=== PATIENT | male | born 1970 | race Caucasian/White ===

== ENCOUNTER 2016-05-13 15:05 | Inpatient (IN) | payer OTHER ==
[~2016-05-13] VITALS: Ht 188 cm; Wt 183.6 kg
[~2016-05-13 15:05] MED LIST: AUGMENTIN875 MG PO; DOXYCYCLINE HY100 MG PO; ENDOCET 5-3251 EACH PO; EXFORGE 5/161 TABLET PO; EXFORGE 5/321 TABLET PO; LEVEMIR100 UNIT/2 SC; LOSARTAN POTAS100 MG PO; METFORMIN HCL1000 MG PO; MOTRIN600 MG PO
[2016-05-13 15:56] LABS: EOSINOPHIL (%) 2.2 % (0-5); EOSINOPHIL COUNT 0.2 K/uL (0-0.3); HEMATOCRIT 51.5 % (38.0-50.0); IMMATURE GRANULOCYTE (%) 1.2 % (0.0-0.7); IMMATURE GRANULOCYTE COUNT 0.1 K/uL; INSTRUMENT ABS NEUTROPHIL CT 4.6 K/uL; LYMPHOCYTE COUNT 1.7 K/uL (1.0-2.8); MCH 26.2 PG (29.0-34.0); MCHC 30.1 G/DL (30.0-36.0); MEAN PLAT.VOLUME 9.4 uM^3 (9.0-12.4); MONOCYTE (%) 8.7 % (3-12); MONOCYTE COUNT 0.6 K/uL (0-0.8); NEUTROPHIL (%) 63.6 % (45-76); NEUTROPHIL COUNT 4.6 K/uL (1.8-6.4); PLATELET COUNT 203 K/uL (156-360); RBC DIS.WIDTH-CV 15.9 % (11.8-14.6); RBC DIS.WIDTH-SD 49.6 % (39-53); RED BLOOD COUNT 5.92 M/uL (4.00-5.50); WHITE BLOOD COUNT 7.2 K/uL (4.1-10.2)
[2016-05-13 16:22] LABS: D-DIMER ELISA 0.34 mg/L FEU (< 0.57)
[2016-05-13 16:28] LABS: CHLORIDE 93 mEq/L (99-109); POTASSIUM 4.7 mEq/L (3.7-5.4); SODIUM 136 mEq/L (136-147)
[2016-05-13 16:29] LABS: GLUCOSE 283 mg/dL (70-99)
[2016-05-13 16:31] LABS: ANION GAP 12 MEQ/L (2-14)
[2016-05-13 16:33] LABS: GFR ESTIMATE (CALCULATED) > 59 mL/min/
[2016-05-13 16:34] LABS: UREA NITROGEN (BUN) 15 mg/dL (9-23)
[2016-05-13 16:38] LABS: TROP-I INTERPRETATION NEGATIVE; TROPONIN-I 0.07 ng/mL (0.0-0.30)
[2016-05-13] MEDS ORDERED: EXFORGE 10/31 TABLET PO (17:20)
[2016-05-13] MEDS ORDERED: METFORMIN HCL500 MG PO (17:21)
[2016-05-13] MEDS ORDERED: ADVAIR 250/501 DISK IH (17:21)
[2016-05-13] MEDS ORDERED: ALLOPURINOL100 MG PO (17:21)
[2016-05-13] MEDS ORDERED: TOUJEO SOL300 UNIT/1 SC (17:21)
[2016-05-13] MEDS ORDERED: JANUVIA100 MG PO (17:21)
[2016-05-13] MEDS ORDERED: PROAIR HFA8.5 GM IH (17:22)
[2016-05-13] MEDS ORDERED: ZOCOR10 MG PO (17:22)
[2016-05-13 17:50] LABS: BASE EXCESS 8.3 mEq/L (-3 to +3); BICARBONATE 38.3 mEq/L (22-26); CARBOXY HGB 2.2 % (0-5); METHEMOGLOBIN 1.1 % (0-1.5); PCO2 76 mm Hg (35-45); PO2 72 mm Hg (80-100); pH 7.31 (7.35-7.45)
[2016-05-13 17:51] LABS: COMMENTS - BLOOD GASES A+C+; DEVICE VM; FI02 50 %; O2 FLOW 12 L/MIN; SITE RR
[2016-05-13 22:50] VITALS: BP 144/84
[2016-05-13 23:01] LABS: POINT-OF-CARE METER ID UU13113725
[2016-05-14 03:14] VITALS: BP 130/73
[2016-05-14 05:48] LABS: POINT-OF-CARE METER ID UU13113725
[2016-05-14 08:27] VITALS: BP 144/68
[2016-05-14 11:36] LABS: POINT-OF-CARE METER ID UU13113725
[2016-05-14 12:00] VITALS: BP 144/73
[2016-05-14 16:26] VITALS: BP 140/85
[2016-05-14 19:00] VITALS: BP 138/73
[2016-05-14 20:39] LABS: POINT-OF-CARE METER ID UU13113725
[2016-05-14 22:38] VITALS: BP 164/83
[2016-05-15 03:35] VITALS: BP 142/67
[2016-05-15 07:21] VITALS: BP 123/64
[2016-05-15 11:46] LABS: POINT-OF-CARE METER ID UU13113725
[2016-05-15 15:00] VITALS: BP 138/81
[2016-05-15 19:15] VITALS: BP 155/68
[2016-05-15 22:55] VITALS: BP 157/78
[2016-05-16 03:12] VITALS: BP 151/78
[2016-05-16 07:36] VITALS: BP 132/75
[2016-05-16 11:33] LABS: POINT-OF-CARE METER ID UU13113725
[2016-05-16 12:00] VITALS: BP 132/61
[2016-05-16 16:00] VITALS: BP 129/62
[2016-05-16 16:45] LABS: POINT-OF-CARE METER ID UU13113725
[2016-05-16 19:08] VITALS: BP 152/72
[2016-05-16 22:38] VITALS: BP 144/80
[2016-05-17 03:41] VITALS: BP 135/61
[2016-05-17 05:40] LABS: POINT-OF-CARE METER ID UU13113725
[2016-05-17 07:49] VITALS: BP 155/88
[2016-05-17] MEDS ORDERED: DUONEB 2.5-0.5 M3 ML AEROSOL (12:33)
[2016-05-17] MEDS ORDERED: LEVOFLOXACIN750 MG PO (12:33)
== END 2016-05-17 14:04 | disposition home or self-care (01) | DRG 190 ==
LOC: EME 15:05 → EDOF 21:15 → 5EAST 21:15
PROVIDERS: Emergency Medicine; Internal Medicine
PROC: 5A09457 Assistance with Respiratory Ventilation, 24-96 Consecutive Hours, Continuous Positive Airway Pressure (ICD-10-PCS; principal; 2016-05-14)
DX: J44.0 Chronic obstructive pulmonary disease with (acute) lower respiratory infection (principal); J96.21 Acute and chronic respiratory failure with hypoxia; J96.22 Acute and chronic respiratory failure with hypercapnia; E66.2 Morbid (severe) obesity with alveolar hypoventilation; Z68.43 Body mass index [BMI] 50.0-59.9, adult; E87.2 Acidosis; J20.9 Acute bronchitis, unspecified; E11.9 Type 2 diabetes mellitus without complications; I10 Essential (primary) hypertension; M10.9 Gout, unspecified; R00.1 Bradycardia, unspecified; I27.2 Other secondary pulmonary hypertension; I51.7 Cardiomegaly; Z99.81 Dependence on supplemental oxygen; Z79.4 Long term (current) use of insulin; Z82.49 Family history of ischemic heart disease and other diseases of the circulatory system
CPT/HCPCS: 36600; 71010; 80048; 82803; 82948; 83880; 84484; 85025; 85379; 93005; 93306; 94010; 94640; 94640 76; 94660; 94799; 99202; 99281; 99285; J1650; J1815; J1956; J2920; J7512